=== PATIENT | female | born 2005 | race Caucasian/White ===

== ENCOUNTER 2024-04-28 03:21 | Emergency (ER) | payer MEDICAID, OTHER ==
[~2024-04-28] VITALS: Ht 165.1 cm; Wt 59.6 kg
[2024-04-28 04:09] LABS: BASO % 0.6 % (0.0-1.0); EOS # 0.2 10^3/uL (0.0-0.5); EOS % 2.1 % (0.0-3.0); HEMATOCRIT 38.6 % (36.0-47.0); HEMOGLOBIN 13.4 g/dl (12.0-15.5); LYMPH # 1.9 10^3/uL (1.5-5.0); LYMPH % 26.2 % (24.0-44.0); MEAN CORPUSCULAR HEMOGLOBIN 32.2 pg (27.0-33.0); MEAN CORPUSCULAR HGB CONC 34.7 g/dl (32.0-36.5); MEAN CORPUSCULAR VOLUME 92.8 fl (80.0-96.0); MONO # 0.7 10^3/uL (0.0-0.8); MONO % 9.2 % (2.0-8.0); NEUTROPHILS # 4.4 10^3/uL (1.5-8.5); NEUTROPHILS % 61.8 % (36.0-66.0); PLATELET COUNT, AUTOMATED 230 10^3/uL (150-450); RED BLOOD COUNT 4.16 10^6/uL (4.00-5.40); WHITE BLOOD COUNT 7.1 10^3/uL (4.0-10.0)
[2024-04-28 04:33] LABS: LIPASE 31 U/L (12-53)
[2024-04-28 04:35] LABS: ALKALINE PHOSPHATASE 57 U/L (46-116); ALT/SGPT < 9 U/L (7.0-40); AST/SGOT < 8 U/L (<34); BILIRUBIN,DIRECT 0.3 MG/DL (<0.4); BILIRUBIN,TOTAL 0.7 MG/DL (0.3-1.2); BLOOD UREA NITROGEN 11 MG/DL (9-23); CALCIUM LEVEL 9.7 MG/DL (8.5-10.1); CARBON DIOXIDE LEVEL 27 MMOL/L (20-31); CHLORIDE LEVEL 108 MMOL/L (98-107); CREATININE FOR GFR 0.74 MG/DL (0.55-1.30); GLUCOSE, FASTING 109 MG/DL (60-100); POTASSIUM SERUM 3.4 MMOL/L (3.5-5.1); SODIUM LEVEL 141 MMOL/L (136-145); TOTAL PROTEIN 6.9 G/DL (5.7-8.2)
[2024-04-28 04:53] LABS: HCG, SERUM QUALITATIVE NEGATIVE (NEGATIVE)
[2024-04-28] MEDS: ONDANSETRON 4MG 2ML VIAL IV ONE (05:49)
[2024-04-28] MEDS: KETOROLAC 30 MG/ML 1ML VIAL IV ONE (05:53)
[2024-04-28] MEDS ORDERED: KETO10TAB PO (09:55)
[2024-04-28] MEDS ORDERED: ONDA-282 PO (09:55)
[2024-04-28] MEDS ORDERED: NITR100C3 PO (09:56)
[2024-04-28] MEDS ORDERED: FLOM0.4C39 PO (09:56)
[2024-04-28 10:01] VITALS: BP 128/73; TEMP 98.7; O2SAT 97
== END 2024-04-28 10:07 | disposition home or self-care (01) ==
LOC: M ED 03:21
DX: N20.1 Calculus of ureter (principal); N13.4 Hydroureter; Z79.83 Long term (current) use of bisphosphonates; Z79.899 Other long term (current) drug therapy
CPT/HCPCS: 74176; 80048; 80076; 81000; 81015; 83605; 83690; 84703; 85025; 87086; 93041; 96374; 96375; 99285; J1885; J2405